=== PATIENT | male | born 1965 | race Two or more races ===

== ENCOUNTER 2025-03-15 08:14 | Emergency (ER) | payer OTHER, SELFPAY ==
[2025-03-15 08:28] VITALS: BP 127/76; PULSE 67; RESP 17; TEMP 36.7; O2SAT 98; BMI 34.0
--- NOTE | 2025-03-15 08:32 | XR_ITS ---
Examination: Tibia-Fibula, left , 2 views Technique: Tibia-fibula AP lateral 2 views Date and time of exam: March 15, 2025, 0834 hrs. Indications: Laceration to the lower leg today, lower leg pain. Findings: No acute fracture No dislocation 2 mm foreign body projects in the soft tissue anterior to the proximal tibia Impression: No acute fracture Foreign body as above
[2025-03-15] MEDS: LIDOCAINE HCL 1% 20 ML VIAL 10 ML INFL (09:13)
--- NOTE | 2025-03-15 10:39 | PD.EDWOUND ---
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 He does report he has had these issues [place]. Denies any other injuries or concerns today. Limitations: no limitations Related Data Previous Rx's ?Medication ?Instructions ?Recorded ibuprofen 800 mg tablet 800 mg PO Q8H PRN pain #20 tabs 03/15/25 Allergies Allergy/AdvReac Type Severity Reaction Status Date / Time NKA* Allergy Uncoded 03/15/25 08:21 Review of Systems Review of Systems Systems Reviewed: All systems reviewed, normal except as documented Narrative Review of Systems: Gen: No fever, no chills, no weight loss EYES: No discharge, no visual changes, no pain HEENT: No ear pain, no congestion, no sore throat PULM: No shortness of breath, no cough, no congestion CV: No chest pain, no dyspnea on exertion, no palpitations GI: No nausea, no vomiting, no diarrhea, no pain, no constipation : No frequency, no urgency,? no dysuria Musc/skel: No joint pain, no back pain Skin: +laceration left leg Psyc: No hallucinations, no depression Heme/Lymph: No easy bleeding or bruising tendencies Neuro: No weakness, no headache ED Exam General Limitations: Present no limitations General appearance: Present alert and in no apparent distress Head Head exam: Present atraumatic Eye Eye exam: Present normal appearance, PERRL and EOMI ENT ENT exam: Present normal exam, normal oropharynx and mucous membranes moist Neck Neck exam: Present normal inspection, full ROM and trachea midline Chest Chest inspection: Present normal inspection and symmetric chest wall rise Respiratory Respiratory exam: Present normal lung sounds bilaterally Cardiovascular Cardiovascular exam: Present regular rate, normal rhythm and normal heart sounds Abdominal Exam Abdominal exam: Present soft and normal bowel sounds; Absent distention or tenderness Extremities Exam Extremities exam: Present full ROM Expanded Lower Extremity Exam Hip/Pelvis exam: Present normal inspection Upper leg exam: Present normal inspection Leg image:  1. 2 cm laceration noted to the lateral. Left calf. No deep structures in the left eye. Minimal bleeding. There is swelling and ecchymosis noted to calf due to possible swelling of laceration. No signs of compartment syndrome no pain out of proportion. Back Exam Back exam: Present normal inspection and full ROM Neurological Exam Neurological exam: Present alert, oriented X3 and CN II-XII intact Psychiatric Psychiatric exam: Present normal affect and normal mood Skin Skin exam: Present warm, dry, intact and normal color Course Quality Measures none Orders Category Date Time Status Crutches .NOW Care 03/15/25 10:39 Completed Wound Care NOW Care 03/15/25 08:32 Completed Wound Cleanser NEEDED Care 03/15/25 10:39 Completed nj wrap [Splint / Immobilizer] STAT Care 03/15/25 10:39 Completed XR tibia fibula LT 2V Stat Exams 03/15/25 08:32 Completed Lidocaine 1% 20 ml [Xylocaine 1% 20 ML] Med 03/15/25 08:32 Discontinued 10 ml INFL X1 ONE Vital Signs Vital signs: Vital Signs Temperature 98.0 F 03/15/25 08:28 Pulse Rate 67 03/15/25 08:28 Respiratory Rate 17 03/15/25 08:28 Blood Pressure 127/76 03/15/25 08:28 Pulse Oximetry (%) 98 03/15/25 08:28 Oxygen Delivery Method Room Air 03/15/25 08:28 PROCEDURES: Laceration Laceration 1: Site: lower extremity Side (If applicable): left Size (cm): 2 Description: linear Depth: simple, single layer Local Anesthetic: lidocaine 1% Amount of anesthesia used (mL): 5 Pre-repair: wound explored and irrigated extensively Skin layer closed with: vicryl Suture size (cm): 4-0 Number of sutures: 3 Technique: simple, interrupted Wound / Laceration MDM Narrative MDM Narrative:: Laceration Repaired.Patient did present with a laceration to his left lateral calf approximate 2 cm after he sustained a work related injury with a machete. No bleeding identified. Patient's wound was irrigated completely be for closure. 3 sutures and placed see procedure note. Patient diReport his tetanus was updated last year. Was obtained after reviewing location of the laceration and possible foreign bodies located there is no relation. Patient states he has had 3 other lacerations 1 in the upper tibia and 1 in the upper knee in the past strictly advised to follow up with his PCP repeat x-rays in the future empirical antibiotics sent to pharmacy. ER precautions given Patient data External records reviewed:: [facility] previous records Clinical information provided by:: patient Social determinants that could affect healthcare access:: none Patient has the following chronic illnesses:: no How is presenting disease/condition affected by chronic disease/condition?: no chronic disease Evaluation data The following diagnostics were reviewed and interpreted by me:: radiology exam(s) and other (specify) Lab and/or radiology exams considered but not ordered:: mo Interpretation Summary: Examination: Tibia-Fibula, left , 2 views Technique: Tibia-fibula AP lateral 2 views Date and time of exam: March 15, 2025, 0834 hrs. Indications: Laceration to the lower leg today, lower leg pain. Findings: No acute fracture No dislocation 2 mm foreign body projects in the soft tissue anterior to the proximal tibia Impression: No acute fracture Foreign body as above Medications / Prescriptions Medications or Prescriptions considered but not ordered:: no Medication administrations:: Medication Administration History Discontinued Medications Lidocaine HCl (Lidocaine Hcl 1% 20 Ml Vial) 10 ml INFL X1 ONE Stop: 03/15/25 08:33 Last Admin: 03/15/25 09:13 Dose: 10 ml Documented By: ANN-MARIE Comments: USED BY PROVIDER meds above Consultations Consultation(s) initiated? (list below): No Diagnosis Wound Differential Diagnosis: laceration, abscess, abrasion and avulsion of skin Most likely diagnosis given after review of the tests above:: laceration repain , calf hematoma, work injury Admission Indicated Admission indicated?: not indicated Admission Request Was there a request for admission?: No Disposition Plan Disposition Plan: Discharge Discharge Attestation Discharge Attestation: The patient and all family members were given an opportunity to ask questions and understood the discharge instructions. Discharge instructions specifically effects, indications for sooner follow up or return to the emergency department, and the expected course of current diagnosis. Patient condition: Stable Discharge Plan Plan Patient Disposition: HOME (Self Care) Patient condition on transfer: Stable Prescriptions/Referrals Prescriptions/Med Rec: New ibuprofen 800 mg tablet 800 mg PO Q8H PRN (Reason: pain) Qty: 20 0RF Problem List Clinical Impression: Laceration, Laceration of calf without complication, Hematoma of left lower leg Patient/Caregiver Discharge Instructions Discharge Activity: activity as tolerated Education Materials: ED Soft Tissue Contusion, ED Hematoma, ED Laceration: All Closures Additional Instructions: Es muy importante que mantenga un vendaje compresivo leatha al menos 3 a 5 d?as. Tiene un hematoma daniele debido a la laceraci?n. Tiene 3 suturas que deber?n retirarse en 7 a 14 d?as. [place] los antibi?ticos seg?n las indicaciones para prevenir cualquier infecci?n. La vacuna contra el t?tanos se actualiz? el a?o pasado. Use muletas para caminar seg?n las indicaciones. Mantenga la pierna elevada para disminuir la hinchaz?n y el dolor. Asista a las citas con xie m?dico de compensaci?n laboral. Si el dolor empeora o es insoportable, regrese a urgencias para que le realicen im?genes y roslyn evaluaci?n adicional It iis very important that you keep a compression bandage for at least 3 to 5 days. You do have a large hematoma due to the laceration. You have 3 sutures that will need to be removed in 7 to 14 days. Take the antibiotics as directed to prevent any infection Tetanus updated last year. Use crutches for ambulation as directed. Keep leg elevated to decrease swelling and pain. Keep appointments with your Worker's Comp. doctor. If there is any worsening pain or unbearable pain that worsens please return to the emergency department for imaging and further evaluation. Print Language: Turkmen Stand Alone Forms: [employer] Award Info., Work/School Release, Patient Portal Info Letter PA/CARISSA Supervising Physician ROSALIO/CARISSA Supervising Physician: Dr [email or web address]
[2025-03-15 11:45] VITALS: BP 132/68; PULSE 72; RESP 18; TEMP 36.8; O2SAT 99
== END 2025-03-15 11:46 | disposition home or self-care (01) ==
LOC: SERX 11:06
PROVIDERS: Emergency Provider Family Medicine; PCP Family Medicine
DX: S81.812A Laceration without foreign body, left lower leg, initial encounter (principal); W26.8XXA Contact with other sharp object(s), not elsewhere classified, initial encounter; Y93.89 Activity, other specified; Y92.74 Orchard as the place of occurrence of the external cause; Y99.0 Civilian activity done for income or pay
CPT/HCPCS: 12002; 73590; 99284; J3490